=== PATIENT | female | born 1955 | race Caucasian/White ===

== ENCOUNTER 2016-08-25 20:57 | Emergency (ER) | payer BC, SELFPAY ==
--- NOTE | 2016-08-25 21:30 | ED.PDOC ---
History of Present Illness - General Chief Complaint: PEDIATRIC PSYCHIATRIST Problem Stated Complaint: large amount of vaginal bleeding Time Seen by Provider: 08/25/16 21:14 Source: patient, RN notes reviewed, Vital Signs reviewed Exam Limitations: no limitations - History of Present Illness Initial Comments: Patient reports 2 weeks of vaginal bleeding that got significantly worse today. Bleeding started after intercourse. She denies pain during intercourse but reports a week of lower abdominal pain after. She is soaking through her clothes and passing large clots. Timing/Duration: getting worse, other - started 2 weeks ago Quality: severe Onset Location: vaginal Radiation: none Activites at Onset: sexual activity Sexual intercourse history: not active, single partner - once 2 weeks ago, none since or for a long time before. Improving Factors: nothing Worsening Factors: movement Associated Symptoms: denies symptoms Allergies/Adverse Reactions: Allergies NO KNOWN ALLERGY Allergy (Verified 08/25/16 21:50) Home Medications: Ambulatory Orders medroxyPROGESTERone ACETATE [Provera] 10 mg PO DAILY #10 tab 08/25/16 Review of Systems - Review of Systems Constitutional: States: no symptoms reported. Denies: malaise, weakness Respiratory: States: no symptoms reported. Denies: cough, short of breath Cardiology: States: no symptoms reported. Denies: chest pain, palpitations, syncope Gastrointestinal/Abdominal: States: see HPI Genitourinary: States: no symptoms reported Musculoskeletal: States: no symptoms reported. Denies: back pain Skin: States: no symptoms reported Neurological: States: no symptoms reported. Denies: headache, weakness Endocrine: States: no symptoms reported Hematologic/Lymphatic: States: blood clots Family Medical History - Family History Mother Living Status: Cause of : cardiac disease Hx Family Hypertension: Yes Physical Exam - Physical Exam General Appearance: Anxious, Comfortable, No apparent distress, Well Developed, Well Groomed, Well Hydrated, Well Nourished Neck: non-tender, full range of motion, supple, normal inspection Cardiovascular/Respiratory: regular rate, rhythm, no M/R/G, no JVD, normal breath sounds, no respiratory distress Gastrointestinal/Abdominal: normal bowel sounds, non tender, soft, no organomegaly, no pulsatile mass Pelvic Exam: external exam normal, active bleeding, blood, other - Large clots removed from pelvic vault. Back Exam: normal inspection Extremity: normal range of motion, non-tender, normal inspection Neurologic: no motor/sensory deficits, alert, normal mood/affect, oriented x 3 Progress - Progress Progress: 08/25/16 23:22 Discussed diagnosis and need for follow up with [facility] Will start 10 days of Provera She did not want to wait for the rest of her labs to come back. - Results/Orders Results/Orders: Laboratory Tests 08/25/16 22:00 WBC 6.5 RBC 3.67 L Hgb 11.6 L Hct 34.1 L MCV 92.9 MCH 31.6 H MCHC 34.0 RDW 12.0 Plt Count 168 MPV 8.3 Absolute Neuts (auto) 4.50 Absolute Lymphs (auto) 1.20 Absolute Monos (auto) 0.70 Absolute Eos (auto) 0.10 Absolute Basos (auto) 0.00 Neutrophils % 68.7 Lymphocytes % 18.4 L Monocytes % 10.3 H Eosinophils % 2.2 Basophils % 0.4 Departure - Departure Clinical Impression: Metrorrhagia Time of Disposition: 23:23 Disposition: Discharge to Home or Self Care Condition: Good Instructions: DI for Vaginal Bleeding Diet: resume usual diet Activity: no exercise Referrals: Smith Love MD [Active Staff] - 1-2 Weeks Prescriptions: medroxyPROGESTERone ACETATE [Provera] 10 mg PO DAILY #10 tab Home Medications: Ambulatory Orders medroxyPROGESTERone ACETATE [Provera] 10 mg PO DAILY #10 tab 08/25/16
[2016-08-25 22:09] VITALS: TEMP 98.1
[2016-08-26 00:19] VITALS: BP 102/68; O2SAT 97
[2016-08-26] MEDS ORDERED: medroxyPROGESTERone ACETATE 5 MG TAB PO SCH (09:00)
[2016-08-26] MEDS ORDERED: medroxyPROGESTERone ACETATE 5 MG TAB PO ONE (23:25)
== END 2016-08-25 23:45 | disposition home or self-care (01) ==
LOC: ER 20:57
DX: N92.1 Excessive and frequent menstruation with irregular cycle (principal)

== ENCOUNTER → 2016-10-08 | Outpatient (CLI) | payer SELFPAY ==
--- NOTE | 2016-10-08 22:23 | US ---
EXAM DESCRIPTION: Pelvic,Non-OB CLINICAL HISTORY: 61 years, Female, N95.0 vaginal bleeding COMPARISON: None. FINDINGS: Transvaginal and transabdominal pelvic sonography was performed with difficulty visualizing the uterus which is estimated at 7.4 x 3.5 x 4.0 cm in size. The endometrium is not well delineated and no free pelvic fluid in the cul-de-sac is seen. The uterus appears to be normally anteverted. The right ovary is 1.5 x 0.8 x 1.7 cm and the left ovary is 1.5 x 1.4 x 1.0 cm. No solid or cystic adnexal mass or fluid collection is seen. IMPRESSION: 1. Limited study with anteverted uterus with nonvisualization of the endometrial stripe. 2. Normal-sized anteverted uterus and normal-sized ovaries without identification of fibroids or uterine endometrial thickening to explain the patient's hemorrhage. 3. If further evaluation is desired consider MRI of the pelvis without and with contrast enhancement. Electronically signed by: Tyson Elizabeth MD 10/08/2016 10:23 PM CDT
== END | disposition home or self-care (01) ==
LOC: US 10:11
PROVIDERS: ATTEND Nurse Practitioner Family
DX: N95.0 Postmenopausal bleeding (principal)

== ENCOUNTER → 2016-12-04 | Outpatient (CLI) | payer SELFPAY ==
--- NOTE | 2016-12-06 21:20 | RAD ---
EXAM DESCRIPTION: Hip,Left 2 Views CLINICAL HISTORY: 61 years, Female, LEFT HIP PAIN X1 WEEK NO TRAUMA COMPARISON: None TECHNIQUE: AP and frog leg lateral views of the left hip FINDINGS: Two-view right hip shows no fracture or bone lesion. There is no joint space abnormality observed. IMPRESSION: 1. Normal study Electronically signed by: Caleb Medina MD 12/06/2016 9:21 PM CDT
== END | disposition home or self-care (01) ==
LOC: YCFC.O 10:01
PROVIDERS: ATTEND Nurse Practitioner Family
DX: M25.552 Pain in left hip (principal)

== ENCOUNTER 2017-06-27 06:11 | Emergency (ER) | payer SELFPAY ==
[2017-06-27 06:28] VITALS: TEMP 98.3
[2017-06-27] MEDS ORDERED: KETOROLAC TROMETHAMINE INJ 30 MG/ML VIAL IM ONE (06:54)
[2017-06-27] MEDS ORDERED: ACETAMINOPHEN W/COD #3 TAB 1 EA TAB PO ONE (06:54)
--- NOTE | 2017-06-27 06:57 | ED.PDOC ---
History of Present Illness - General Chief Complaint: Back Pain or Injury Stated Complaint: Right flank and back pain Time Seen by Provider: 06/27/17 06:54 Source: patient Exam Limitations: no limitations - History of Present Illness Initial Comments: ACUTE ONSET OF RIGHT SIDED BACK PAIN, ONSET YESTERDAY, CONSTANT 01/05. SAYS SHE HAS BEEN PAINTING HER KITCHEN. DENIES FEVER OR DYSURIA. Timing/Duration: 7-24 hours Quality/Severity: burning Back Pain Location: other - RIGHT FLANK Method of Injury/Prior Injury: unknown Improving Factors: nothing Worsening Factors: immobilization Associated Symptoms: denies symptoms Allergies/Adverse Reactions: Allergies Hydrocodone [From [place]] Adverse Reaction (Verified 06/27/17 06:23) Home Medications: Ambulatory Orders medroxyPROGESTERone TAB [Provera] 10 mg PO DAILY #10 tab 08/25/16 Acetaminophen W/ Codeine [Tylenol W/ CODEINE #3] 1 ea PO Q6HRS #15 06/27/17 Cyclobenzaprine HCl [Flexeril] 10 mg PO Q8HRS 5 Days #15 tab 06/27/17 Review of Systems - Review of Systems Constitutional: States: no symptoms reported EENTM: States: no symptoms reported Respiratory: States: no symptoms reported Cardiology: States: no symptoms reported Gastrointestinal/Abdominal: States: no symptoms reported Genitourinary: States: no symptoms reported Musculoskeletal: States: see HPI, muscle pain Skin: States: no symptoms reported Neurological: States: no symptoms reported Endocrine: States: see HPI Hematologic/Lymphatic: States: no symptoms reported Past Medical History (General) - Patient Medical History Hx Seizures: No Hx Stroke: No Hx Dementia: No Hx Asthma: No Hx of COPD: No Hx Cardiac Disorders: No Hx Congestive Heart Failure: No Hx Pacemaker: No Hx Hypertension: Yes Hx Thyroid Disease: No Hx Diabetes: No Hx Gastroesophageal Reflux: No Hx Renal Disease: No Hx Cancer: No Hx of HIV: No Hx Hepatitis C: No Hx MRSA: No Other Surgeries:: OVARIAN MASS REMOVED-BENIGN - Vaccination History Hx Tetanus, Diphtheria Vaccination: Yes Hx Influenza Vaccination: Yes Hx Pneumococcal Vaccination: No Immunizations Up to Date: Yes - Social History Hx Tobacco Use: Yes Hx Alcohol Use: No Family Medical History - Family History Mother Living Status: Cause of : cardiac disease Hx Family Hypertension: Yes Physical Exam - Physical Exam General Appearance: Alert, Anxious, Restless Eyes, Ears, Nose, Throat Exam: PERRL/EOMI, normal ENT inspection, TMs normal, pharynx normal Neck Exam: non-tender Cardiovascular/Respiratory: regular rate, rhythm, normal peripheral pulses, no JVD Peripheral Pulses: radial,right: 2+, radial,left: 2+ Gastrointestinal/Abdominal: normal bowel sounds, non tender, soft, no organomegaly, no pulsatile mass Back Exam: normal inspection, CVA tenderness (R), decreased range of motion, muscle spasm Neurologic: no motor/sensory deficits, alert, normal mood/affect, oriented x 3 Skin Exam: normal color Departure - Departure Clinical Impression: Lumbar back pain Qualifiers: Chronicity: acute Back pain laterality: right Sciatica presence: without sciatica Qualified Code(s): M54.5 - Low back pain Time of Disposition: 07:01 Disposition: Discharge to Home or Self Care Departure Forms: ED Discharge - Pt. Copy, Patient Portal Self Enrollment Diet: resume usual diet Activity: increase activity as tolerated Referrals: Miriam Velazquez NP [Primary Care Provider] - 1-2 Weeks Prescriptions: Acetaminophen W/ Codeine [Tylenol W/ CODEINE #3] 1 ea PO Q6HRS #15 Cyclobenzaprine HCl [Flexeril] 10 mg PO Q8HRS 5 Days #15 tab Home Medications: Ambulatory Orders medroxyPROGESTERone TAB [Provera] 10 mg PO DAILY #10 tab 08/25/16 Acetaminophen W/ Codeine [Tylenol W/ CODEINE #3] 1 ea PO Q6HRS #15 06/27/17 Cyclobenzaprine HCl [Flexeril] 10 mg PO Q8HRS 5 Days #15 tab 17
[2017-06-27 07:18] VITALS: BP 143/76; O2SAT 95
== END 2017-06-27 07:16 | disposition home or self-care (01) ==
LOC: ER 06:11
DX: M54.5 Low back pain (principal); I10 Essential (primary) hypertension
CPT/HCPCS: 81001; J1885

== ENCOUNTER 2018-12-06 11:28 | Emergency (ER) | payer SELFPAY ==
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
[2018-12-06] MEDS ORDERED: BUPIVACAINE 0.5% 30 ML VIAL INJ ONE (12:55)
[2018-12-06] MEDS ORDERED: LIDOCAINE 1% 10 ML VIAL INJ ONE (12:55)
[2018-12-06] MEDS ORDERED: LIDOCAINE 1% W/ EPINEPHRINE 20 ML VIAL INJ ONE (12:55)
[2018-12-06] MEDS ORDERED: TRIAMCINOLONE ACETONIDE INJ 40 MG/ML VIAL ONE (12:56)
[2018-12-06 13:27] VITALS: BP 148/79; TEMP 98.3; O2SAT 100
== END 2018-12-06 13:35 | disposition home or self-care (01) ==
LOC: ER 11:28
DX: M17.11 Unilateral primary osteoarthritis, right knee (principal); I10 Essential (primary) hypertension; Z87.891 Personal history of nicotine dependence; Z88.5 Allergy status to narcotic agent
CPT/HCPCS: 73560; J3301

== ENCOUNTER 2019-02-06 09:21 | Emergency (ER) | payer SELFPAY ==
[2019-02-06] MEDS ORDERED: predniSONE 20 MG TAB PO ONE (09:39)
[2019-02-06] MEDS ORDERED: CETIRIZINE HCL 10 MG TAB PO ONE (09:39)
--- NOTE | 2019-02-06 09:42 | ED.PDOC ---
History of Present Illness - General Chief Complaint: Skin/Abrasion/Tear Stated Complaint: redness and rash to left arm and hand Time Seen by Provider: 02/06/19 09:24 Source: patient Exam Limitations: no limitations - History of Present Illness Initial Comments: the patient's 63-year-old female presenting to the emergency room secondary to rash and pruritus to bilateral arms for the last 5 or 6 weeks. It seems to have all started when she was cutting down trees in her yard. The itching has persisted since that time. She has a few lesions that have obviously developed a mild surrounding bacterial cellulitis. Skin is significantly dry. No real hives at this point. No abscesses at this point. Itching does indicate a significant allergic component. Timing/Duration: unsure Severity: moderate Improving Factors: nothing Worsening Factors: nothing Associated Symptoms: denies symptoms Allergies/Adverse Reactions: Allergies Hydrocodone [From [place]] Adverse Reaction (Verified 06/27/17 06:23) Home Medications: Ambulatory Orders Sulfa/Trimeth 800/160 (Ds) Tab [Bactrim DS Tab] 1 ea PO BID #6 tab 02/06/19 predniSONE [Prednisone] 20 mg PO DAILY #3 tab 02/06/19 Review of Systems - Review of Systems Constitutional: States: no symptoms reported EENTM: States: no symptoms reported Respiratory: States: no symptoms reported Cardiology: States: no symptoms reported Gastrointestinal/Abdominal: States: no symptoms reported Genitourinary: States: no symptoms reported Musculoskeletal: States: no symptoms reported Skin: States: see HPI Neurological: States: no symptoms reported Endocrine: States: no symptoms reported All other Systems: No Change from Baseline Past Medical History (General) - Patient Medical History Hx Seizures: No Hx Stroke: No Hx Dementia: No Hx Asthma: No Hx of COPD: No Hx Cardiac Disorders: No Hx Congestive Heart Failure: No Hx Pacemaker: No Hx Hypertension: Yes Hx Thyroid Disease: No Hx Diabetes: No Hx Gastroesophageal Reflux: No Hx Renal Disease: No Hx Cancer: No Hx of HIV: No Hx Hepatitis C: No Hx MRSA: No - Vaccination History Hx Tetanus, Diphtheria Vaccination: Yes Hx Influenza Vaccination: No Hx Pneumococcal Vaccination: No - Social History Hx Tobacco Use: Yes Hx Alcohol Use: No Family Medical History - Family History Mother Living Status: Cause of : cardiac disease Hx Family Hypertension: Yes Physical Exam - Physical Exam General Appearance: Alert, Comfortable, No apparent distress Eye Exam: bilateral normal Ears, Nose, Throat: hearing grossly normal, normal ENT inspection Neck: full range of motion, supple Respiratory: lungs clear, normal breath sounds, no respiratory distress, no accessory muscle use Cardiovascular/Chest: normal peripheral pulses, regular rate, rhythm, no edema Peripheral Pulses: radial,right: 2+, radial,left: 2+ Gastrointestinal/Abdominal: non tender, soft Rectal Exam: deferred Back Exam: no CVA tenderness, no vertebral tenderness Extremity: normal range of motion, non-tender, no pedal edema, normal capillary refill Neurologic: pressurizer II-XII nml as tested, alert, normal mood/affect, oriented x 3 Skin Exam: other - see history of present illness. Comments: Vital Signs - 24 hr 02/06/19 09:34 Temperature 98 F Pulse Rate [ 87 Left Brachial] Respiratory 16 Rate Blood Pressure 135/83 [Left Arm] O2 Sat by Pulse 98 Oximetry Progress - Progress Progress: 02/06/19 09:43 the patient is a 63-year-old female presenting with dermatitis of bilateral upper extremities for greater than 4 weeks now. this likely started as a contact and mild allergic dermatitis related to recent yardwork. She does have several small areas of cellulitis but no abscess formation. The patient is going to be placed on Bactrim for the cellulitis. She needs to pickler helper some Eucerin cream and use it twice daily on her arms to prevent dehydration and further cracking. She can pickler helper some [id number] cetirizine 10 mg and take that once daily for the next 2 or 3 weeks to help reduce the allergic component. She will also be written for prednisone for the next 3 days for the same purpose. She can pickler helper some hydrocortisone 10 and use it locally on only the most irritated spots 3 or 4 times a day for the next week only. She needs to avoid scratching the areas. ER warnings were given. Keep routine follow up with primary care doctor. Departure - Departure Clinical Impression: Contact dermatitis and eczema, Cellulitis of multiple sites of upper arm Disposition: Discharge to Home or Self Care Condition: Fair Departure Forms: ED Discharge - Pt. Copy, Patient Portal Self Enrollment Instructions: DI for Wound Infection Diet: regular diet Activity: increase activity as tolerated Prescriptions: predniSONE [Prednisone] 20 mg PO DAILY #3 tab Sulfa/Trimeth 800/160 (Ds) Tab [Bactrim DS Tab] 1 ea PO BID #6 tab Home Medications: Ambulatory Orders Sulfa/Trimeth 800/160 (Ds) Tab [Bactrim DS Tab] 1 ea PO BID #6 tab 02/06/19 predniSONE [Prednisone] 20 mg PO DAILY #3 tab 02/06/19 Additional Instructions: the patient is a 63-year-old female presenting with dermatitis of bilateral upper extremities for greater than 4 weeks now. this likely started as a contact and mild allergic dermatitis related to recent yardwork. She does have several small areas of cellulitis but no abscess formation. The patient is going to be placed on Bactrim for the cellulitis. She needs to pickler helper some Eucerin cream and use it twice daily on her arms to prevent dehydration and further cracking. She can pickler helper some [id number] cetirizine 10 mg and take that once daily for the next 2 or 3 weeks to help reduce the allergic component. She will also be written for prednisone for the next 3 days for the same purpose. She can pickler helper some hydrocortisone 10 and use it locally on only the most irritated spots 3 or 4 times a day for the next week only. She needs to avoid scratching the areas. ER warnings were given. Keep routine follow up with primary care doctor.
[2019-02-06 09:57] VITALS: BP 135/74; TEMP 97.2; O2SAT 97
== END 2019-02-06 10:03 | disposition home or self-care (01) ==
LOC: ER 09:21
DX: L03.114 Cellulitis of left upper limb (principal); L03.113 Cellulitis of right upper limb; L25.9 Unspecified contact dermatitis, unspecified cause; I10 Essential (primary) hypertension; Z87.891 Personal history of nicotine dependence; Z88.5 Allergy status to narcotic agent